=== PATIENT | female | born 1950 | race Caucasian/White ===

== ENCOUNTER 2022-02-19 06:57 | Day surgery (SDC) | payer OTHER ==
[2022-01-02 15:24] VITALS: BMI 33.6
[2022-02-19] MEDS ORDERED: NEO/POLYMYX B SULF/DEXAMETH OPHTHALMIC 5ML BOTTLE ONE (07:10)
[2022-02-19] MEDS ORDERED: BSS (NA/CA/MG/K) BALANCED SALT SOLUTION OPHTH SOLN 15 ML BOTTLE ONE (07:10)
[2022-02-19] MEDS ORDERED: CARBACHOL 0.01% INTRA-OCULAR 1.5 ML VIAL ONE (07:10)
[2022-02-19] MEDS ORDERED: TETRACAINE 0.5% OPHTH SOLN 2 ML BOTTLE ONE (07:10)
[2022-02-19] MEDS ORDERED: LIDOCAINE 1% P/F 10 MG/ML VIAL ONE (07:10)
[2022-02-19] MEDS ORDERED: TROPICAMIDE 1% OPHTH SOLN 15 ML BOTTLE ONE (07:17)
[2022-02-19] MEDS ORDERED: CIPROFLOXACIN 0.3% EYE DROPS 5 ML BOTTLE ONE (07:17)
[2022-02-19] MEDS ORDERED: PHENYLEPHRINE 2.5% OPHTH SOLN 15 ML BOTTLE ONE (07:17)
[2022-02-19] MEDS ORDERED: CYCLOPENTOLATE 2% OPHTH SOLN 2 ML BOTTLE ONE (07:17)
[2022-02-19 07:31] VITALS: RESP 16
[2022-02-19] MEDS ORDERED: CIPROFLOXACIN 0.3% EYE DROPS 5 ML BOTTLE OS ONE (07:35)
[2022-02-19] MEDS ORDERED: TROPICAMIDE 1% OPHTH SOLN 15 ML BOTTLE OS ONE ×3 (07:35→07:45)
[2022-02-19] MEDS ORDERED: PHENYLEPHRINE 2.5% OPHTH SOLN 15 ML BOTTLE OS ONE ×3 (07:35→07:45)
[2022-02-19] MEDS ORDERED: CYCLOPENTOLATE 2% OPHTH SOLN 2 ML BOTTLE OS ONE ×3 (07:35→07:45)
[2022-02-19] MEDS ORDERED: CIPROFLOXACIN HCL 0.3% OPHTH 2.5ML BOTTLE OS ONE ×2 (07:40→07:45)
[2022-02-19] MEDS ORDERED: MIDAZOLAM HCL 2 MG/2 ML SINGLE DOSE VIAL ONE (08:53)
[2022-02-19] MEDS ORDERED: ONDANSETRON 4 MG/2 ML VIAL ONE (08:53)
[2022-02-19 13:57] VITALS: TEMP 97.7
[2022-02-19 13:59] VITALS: BP 115/67; PULSE 60
== END 2022-02-19 10:05 | disposition home or self-care (01) ==
LOC: FASU 06:57
PROVIDERS: ATTEND Ophthalmology
PROC: 08RK3JZ Replacement of Left Lens with Synthetic Substitute, Percutaneous Approach (ICD-10-PCS; principal; 2022-02-19 09:02)
DX: H26.8 Other specified cataract (principal)
CPT/HCPCS: 66984; V2632

== ENCOUNTER 2022-04-08 07:28 | Day surgery (SDC) | payer OTHER ==
[2022-03-12 13:31] VITALS: BMI 33.6
[2022-04-08] MEDS: PHENYLEPHRINE 2.5% OPTHALMIC DROP 2ML BOTTLE ONE ×3 (08:15→08:25)
[2022-04-08] MEDS: CYCLOPENTOLATE 2% OPHTH SOLN 2 ML BOTTLE ONE ×3 (08:15→08:25)
[2022-04-08] MEDS: CIPROFLOXACIN 0.3% EYE DROPS 5 ML BOTTLE ONE ×3 (08:15→08:25)
[2022-04-08] MEDS: TROPICAMIDE 1% OPHTH SOLN 15 ML BOTTLE ONE ×3 (08:15→08:25)
[2022-04-08 08:16] VITALS: TEMP 97.7
[2022-04-08] MEDS ORDERED: BSS (NA/CA/MG/K) BALANCED SALT SOLUTION OPHTH SOLN 15 ML BOTTLE ONE (08:51)
[2022-04-08] MEDS ORDERED: LIDOCAINE HCL/PF 1% SDV 5ML VIAL ONE (08:51)
[2022-04-08] MEDS ORDERED: CARBACHOL 0.01% INTRA-OCULAR 1.5 ML VIAL ONE (08:51)
[2022-04-08] MEDS ORDERED: TETRACAINE 0.5% OPHTH SOLN 2 ML BOTTLE ONE (08:51)
[2022-04-08] MEDS ORDERED: NEO/POLYMYX B SULF/DEXAMETH OPHTHALMIC 5ML BOTTLE ONE (08:51)
[2022-04-08] MEDS ORDERED: MIDAZOLAM HCL 2 MG/2 ML SINGLE DOSE VIAL ONE (09:30)
[2022-04-08 10:47] VITALS: BP 122/64; PULSE 65; RESP 18
== END 2022-04-08 11:15 | disposition home or self-care (01) ==
LOC: FASU 07:28
PROVIDERS: ATTEND Ophthalmology
PROC: 08RJ3JZ Replacement of Right Lens with Synthetic Substitute, Percutaneous Approach (ICD-10-PCS; principal; 2022-04-08 09:40)
DX: H26.8 Other specified cataract (principal)
CPT/HCPCS: 66984; V2632